=== PATIENT | female | born 1995 | race Caucasian/White ===

== ENCOUNTER 2021-06-24 17:03 | Observation (INO) | payer BC, SELFPAY ==
--- NOTE | ~2021-06-24 | US_ITS ---
EXAMINATION: US OB limited DATE: 06/24/2021 18:55 INDICATION: Bleeding and leaking fluids during second trimester of . TECHNIQUE: Real-time ultrasound of the pelvis was performed. The interpreting radiologist was not pre sent for the study. COMPARISON: None. FINDINGS: There is a single living fetus in vertex presentation. The placenta is anterior. No evident subchori onic hematoma. heart rate is 139 beats per minute (bpm). The amniotic fluid index is 12.8 cm, w hich is normal (5th%-95%: 9.3-21.2 cm at the weeks estimated gestational age). IMPRESSION: 1. Single living fetus in vertex presentation with heart rate of 139 bpm. 2. Normal amniotic fluid index of 12.8 cm. Reviewed, dictated and finalized at location A.
--- NOTE | 2021-06-24 17:03 | OBADM ---
This patient, Naomy Yi, admitted to the OB room [facility] for observation. Patient/family oriented to hospital policies and general routines including ID bracelet, bed and alarms, visiting hours, pain management, procedures, bathroom and other care routines, personal items, smoking policy, room service/diet, and visiting hours. Patient/Family are encouraged to report perceived risks to care and to ask questions if they do not understand what they are told or what they should do.
[2021-06-24 18:03] VITALS: BP 123/67; PULSE 76; TEMP 36.3
[2021-06-24 19:53] VITALS: RESP 18
[2021-06-24] MEDS: RHO(D) IMMUNE GLOBULIN 300 MCG/2 ML SYRINGE IM (20:07)
--- NOTE | 2021-06-25 07:37 | PM.OBTRLD ---
OB - Triage/Final Diagnosis Visit Information Date of evaluation: 06/24/21 Reason for evaluation: other (vaginal bleeding ) Comments/Additional reasons for admission: I have assessed the risk for this patient, Naomy Yi, and determined that she would benefit from observation care. Evaluation Laboratory results: Laboratory Tests 06/24/21 18:00 Blood Type B Negative Antibody Screen Negative Screen Not Reportable Baby's Blood Type Not Reportable Baby's ART Not Reportable Doses of RhIg Required 1 Vital signs: Vital Signs - 24 hr 06/24/21 18:03 06/24/21 19:53 Temperature 36.3 C L Pulse Rate 76 Respiratory Rate 18 Blood Pressure 123/67
== END 2021-06-24 20:13 | disposition home or self-care (01) ==
PROVIDERS: Admitting Provider Student in an Organized Health Care Education/Training Program; Visit Provider Student in an Organized Health Care Education/Training Program
DX: O46.92 Antepartum hemorrhage, unspecified, second trimester (principal); Z3A.20 20 weeks gestation of pregnancy
CPT/HCPCS: 36415; 76815; 85461; 90384; 96372; G0378; G0379; J2790

== ENCOUNTER 2021-06-30 04:04 | Observation (INO) | payer BC, SELFPAY ==
[2021-06-30] VITALS (19 sets, daily range): BP systolic 118–138; BP diastolic 71–97; PULSE 79–110; RESP 16; TEMP 36.9; O2SAT 99–100; BMI 39.1
--- NOTE | ~2021-06-30 | US_ITS ---
EXAMINATION: US OB limited, US OB transvaginal DATE: 06/30/2021 07:34 INDICATION: Spotting during second trimester . TECHNIQUE: Real-time ultrasound of the pelvis was performed utilizing both transabdominal and transva ginal probes. The interpreting radiologist was not present for the study. COMPARISON: None. FINDINGS: There is a single living fetus in vertex presentation. The placenta is anterior. heart rate is 148 beats per minute (bpm). The amniotic fluid index is 13.0 cm, which is normal (5th%-95%: 9.5-21.4 cm at 21 weeks estimated gestational age). The external cervical os is dilated to 1.9 cm. IMPRESSION: 1. Single living fetus in vertex presentation with heart rate of 148 bpm. 2. Normal amniotic fluid index of 13.0 cm. 3. The external cervical os is dilated to 2.0 cm. Findings were discussed with Kika Neville, the nurs e caring for the patient, at 7:35 AM. Reviewed, dictated and finalized at location A. IMPRESSION: 1. Single living fetus in vertex presentation with heart rate of 148 bpm . 2. Normal amniotic fluid index of 13.0 cm. 3. The external cervical os is dilated to 2.0 cm. Findings were discussed with Kika Neville, the nurse caring for the patient, at 7:35 AM.
--- NOTE | 2021-06-30 05:12 | OBADM ---
This patient, Naomy Yi, admitted to the OB room [facility] for observation. Patient/family oriented to hospital policies and general routines including ID bracelet, bed and alarms, visiting hours, pain management, procedures, bathroom and other care routines, personal items, smoking policy, room service/diet, and visiting hours. Patient/Family are encouraged to report perceived risks to care and to ask questions if they do not understand what they are told or what they should do.
--- NOTE | 2021-06-30 08:09 | PM.IMHP ---
H&P: HPI History of Present Illness Date/Time: 06/30/21 08:09 this is a 26-year-old primigravida patient admitted at 21 weeks gestation complaining of bleeding and spotting. She was seen earlier in the week and her cervix was noted to be closed with a normal amount of fluid and normal-appearing growth. She is admitted now complaining of possible leaking fluid and bleeding. Ultrasound was performed this a.m. and she was noted to be 2cm. She has been informed of the grave situation and magnesium sulfate has been started. Chief Complaint: bleeding at 21 weeks Review of Systems Review of Systems: All systems reviewed & are unremarkable except as noted in HPI and below Meds Home Medications and Allergies Home Medications Medication Instructions Recorded Confirmed Type vit-ferrous sulfat-FA 1 tablet PO QAM 06/24/21 06/24/21 History [] Allergies Allergy/AdvReac Type Severity Reaction Status Date / Time No Known Allergies Allergy Verified 06/24/21 18:46 Vital Signs Vital Signs - 24 hr 06/30/21 05:01 06/30/21 06:07 06/30/21 07:01 Temperature 98.5 F Pulse Rate 91 79 81 Blood Pressure 138/84 130/82 132/77 Pulse Oximetry 06/30/21 07:41 06/30/21 07:46 06/30/21 07:51 Temperature Pulse Rate Blood Pressure Pulse Oximetry 99 99 100 Exam Const: General: no acute distress Eyes: General: appearance normal, both eyes and all related structures Neck: Neck: supple and no JVD Thyroid: thyroid normal Resp: Effort & Inspection: normal respiratory effort Auscultation: clear to auscultation bilaterally Cardio: Rate: regular rate Rhythm: regular rhythm GI: Inspection: non-distended GI Palp: Yes Soft to palpation, No Tenderness to palpation present (GI) and No Guarding due to palpation present (GI) Auscultation: normal bowel sounds : External Female Exam: normal external appearance Speculum Exam - Vagina: normal appearance of the vagina Speculum Exam - Cervix: Cervical os closed ( 2Cm by ultrasound. heart tones. Normal) Skin: General skin exam: no rashes or lesions noted Extrem: General: normal to inspection and no edema Psych: Mental Status: mental status grossly normal Affect: normal affect Assessment and Plan Additional Plan impression: 21 week with suspected incompetent cervix Plan: Will try to arrange for transfer. Have started magnesium sulfate. Will proceed with antibiotics and/or steroids if advised so by transferring group
[2021-06-30] MEDS: LACTATED RINGERS 1,000 ML 75 ML IV CONT (08:26)
[2021-06-30] MEDS: MAGNESIUM SULF 20GM/WATER500ML 500 ML 50 MG IV CONT (08:28)
--- NOTE | 2021-06-30 09:17 | P.DS_ITS ---
DS: Admitting Diagnosis Discharge Date 06/30/21 Admitting Diagnosis 21 week bleeding DS: Summary Hospital Course Hospital Course: the patient was admitted at 21 weeks with vaginal bleeding. She underwent ultrasound which showed the cervix to be open 2cm with bulging membranes. Immediate consultation with [facility] was undertaken. Due to the patient's early nonviable stage [facility]'s asked the patient be transferred by her own car and they will follow her up. The declined to give antibiotics/ steroids/ magnesium. Time Spent with Patient Time attestation: Total time spent providing and/or coordinating discharge services: Exam Const: General: no acute distress Eyes: General: appearance normal, both eyes and all related structures Neck: Neck: supple and no JVD Thyroid: thyroid normal Resp: Effort & Inspection: normal respiratory effort Auscultation: clear to auscultation bilaterally Cardio: Rate: regular rate Rhythm: regular rhythm GI: Inspection: non-distended GI Palp: Yes Soft to palpation, No Tenderness to palpation present (GI) and No Guarding due to palpation present (GI) Auscultation: normal bowel sounds : General: Yes bladder normal to palpation External Female Exam: normal external appearance Speculum Exam - Vagina: normal vaginal discharge and No vaginal bleeding Speculum Exam - Cervix: nontender Bimanual exam- vagina & uterus: bladder normal to palpation and No Cervical tenderness present OB/external & speculum: No vaginal bleeding Skin: General skin exam: no rashes or lesions noted Extrem: General: normal to inspection and no edema Psych: Mental Status: mental status grossly normal Affect: normal affect Discharge Plan Discharge Attending physician on discharge: Benjamin Quiroz Discharging Clinician: Benjamin Quiroz Patient Disposition: Acute Care Hospital Activity: no straining and pelvic rest Diet: NPO Wound Care Instructions: follow printed instructions Discharge Instructions: Go directly to [facility] on the [facility]th [facility] Follow-up/Referrals: Benjamin Quiroz MD [Physician] - Discharge Medications: Continued vit-ferrous sulfat-FA 27 mg iron- 0.8 mg Tablet 1 tablet PO QAM RF: 0 Date of admission: 06/30/21 04:04 Primary Care Provider: PHYSICIAN,[employer] Admitting Provider: Benjamin Quiroz Attending physician on admission: Benjamin Quiroz Condition: Guarded Prognosis
== END 2021-06-30 09:14 | disposition short-term general hospital (02) ==
LOC: ANHOBPP 05:07 → ANHLDR 09:14
PROVIDERS: Admitting Provider Obstetrics & Gynecology; Visit Provider Obstetrics & Gynecology
DX: O26.852 Spotting complicating pregnancy, second trimester (principal); Z3A.21 21 weeks gestation of pregnancy
CPT/HCPCS: 76815; 76817; 96374; G0378; G0379; J3475; J7120